=== PATIENT | female | born 1945 | race Caucasian/White ===

== ENCOUNTER → 2020-09-09 | Day surgery (SDC) | payer MEDICARE, BC ==
[2020-09-07 09:07] VITALS: BMI 21.3
[~2020-09-09] MED LIST: LACTATED RINGERS 1,000 ML IV ONE; PROPOFOL 10 MG/ML 20 ML VIAL IV ONE
[2020-09-09 09:10] VITALS: TEMP 97.8
--- NOTE | 2020-09-09 09:47 | P.PCN ---
Date of Procedure: 09/09/20 Procedure(s) Performed: BRIEF HISTORY: Patient is a 74-year-old pleasant white female scheduled for an elective colonoscopy as a part of chronic diarrhea for the last several months duration. She has bowel movements daily between 7-10 a day which are loose to watery in consistency. No blood or mucus in the stool. Her last colonoscopy was 5 years ago. PROCEDURE PERFORMED: Colonoscopy with random biopsy. PREOPERATIVE DIAGNOSIS: Chronic diarrhea. IV sedation per Anesthesia. PROCEDURE: After informed consent was obtained, the patient, was brought into the endoscopy unit. IV sedation was administered by Anesthesia under continuous monitoring. Digital rectal examination was normal. Initially the Olympus CF-160 flexible video colonoscope was then inserted in the rectum, gradually advanced into the cecum without any difficulty. Careful examination was performed as the scope was gradually being withdrawn. Ileocecal valve and the appendiceal orifice were visualized and appeared normal. Prep was excellent. Mucosa of the cecum, ascending colon, transverse colon, descending colon, sigmoid colon, and rectum appeared normal. Biopsies were done from ascending and descending colon to rule out microscopic/collagenous colitis. Scattered sigmoid diverticulosis seen. Retroflexion was performed in the rectum and no lesions were seen. The patient tolerated the procedure well. IMPRESSION: Normal-appearing colon from rectum to cecum with no evidence of colitis or colorectal neoplasia. Scattered sigmoid diverticulosis RECOMMENDATIONS: Findings of this examination were discussed with the patient as well as her family. She was advised to follow with the biopsy results. Continue with Bentyl 10 mg 4 times daily as needed and follow up in office as needed.
[2020-09-09 09:53] VITALS: RESP 16
[2020-09-09 10:10] VITALS: BP 116/67; PULSE 63
== END ==
LOC: ORWHC2ENDO 08:27
PROVIDERS: ATTEND Internal Medicine Gastroenterology
DX: D72.820 Lymphocytosis (symptomatic) (principal); K57.30 Diverticulosis of large intestine without perforation or abscess without bleeding; Z79.890 Hormone replacement therapy; Z79.1 Long term (current) use of non-steroidal anti-inflammatories (NSAID); E07.9 Disorder of thyroid, unspecified; Z90.710 Acquired absence of both cervix and uterus; Z98.890 Other specified postprocedural states
CPT/HCPCS: 88305; 45380; J2704

== ENCOUNTER → 2021-11-23 | Outpatient (CLI) | payer MEDICARE, BC ==
--- NOTE | 2021-12-17 07:45 | MM ---
Reason for Exam: Screening (asymptomatic). Last mammogram was performed 3 year(s) and 11 month(s) ago. Patient History: Menarche at age 14. First Full-Term at age 21. Left ovary removed at age 61. Right ovary removed at age 61. Hysterectomy at age 61. Postmenopausal. Currently using Estrogen, starting at age 60. Sister had breast cancer at or over age 50. Sister had breast cancer at or over age 50. Sister had breast cancer at or over age 50. Mother had ovarian cancer at or over age 50. Risk Values: Isatu 5 year model risk: 6.5%. NCI Lifetime model risk: 12.8%. Prior Study Comparison: 12/11/2015 Bilateral MG 3D screening mammo w/cad, [place]. 12/26/2017 Bilateral MG 3D screening mammo w/cad, [place]. Tissue Density: The breast tissue is heterogeneously dense. This may lower the sensitivity of mammography. Findings: Analyzed By CAD. There is no suspicious group of microcalcifications or new suspicious mass in either breast. Overall Assessment: Negative, BI-RAD 1 Management: Screening Mammogram of both breasts in 1 year. A clinical breast exam by your physician is recommended on an annual basis and results should be correlated with mammographic findings. [facility] will attempt to contact patient to return for supplemental views and ultrasound if indicated. Electronically signed and approved by: Eldon Beltran DO
== END | disposition home or self-care (01) ==
LOC: RADMAMWWP 09:20
PROVIDERS: ATTEND Family Medicine
DX: Z12.31 Encounter for screening mammogram for malignant neoplasm of breast (principal); Z78.0 Asymptomatic menopausal state; Z80.3 Family history of malignant neoplasm of breast
CPT/HCPCS: 77063; 77067

== ENCOUNTER → 2023-08-25 | Outpatient (CLI) | payer MEDICARE, BC ==
--- NOTE | 2023-08-27 16:23 | BD ---
EXAMINATION TYPE: Axial Bone Density DATE OF EXAM: 08/25/2023 CLINICAL HISTORY: 77 years old Female. ICD-10 CODE: Z78.0 ASYMP MENOPAUSAL STATE Height: 66" Weight: 135lbs FRAX RISK QUESTIONS: Alcohol (3 or more units per day): No Family History (Parent hip fracture): No Glucocorticoids (More than 3mos): No (Ex: prednisone, prednisolone, methylprednisolone, dexamethasone, and hydrocortisone). History of Fracture in Adulthood: No Secondary Osteoporosis: 1. Type 1 Diabetes: No 2. Hyperthyroidism: No 3. Menopause before 45: No 4. Malnutrition: No 5. Chronic liver disease: No Rheumatoid Arthritis: No Current Tobacco Use: No RISK FACTORS HISTORY OF: Hip Fracture (Right/Left): No Spine Fracture: No History of Wrist Fracture: No Surgery to Spine/Hip(right/left)/Wrist (right/left): No MEDICATIONS: Thyroid Medications: Yes Which medication: Levothyroxine How Long: Approx. 10 years Osteoporosis Medications: No EXAM MEASUREMENTS: Bone mineral densitometry was performed using the [employer]. Bone mineral density as measured about the Lumbar spine is: ----- L1-L4(G/cm2): 1.470 T Score Values are as follows: ----- L1: 0.0 ----- L2: 3.3 ----- L3: 4.4 ----- L4: 1.5 ----- L1-L4: 2.4 Z Score Values are as follows: ----- L1: 1.9 ----- L2: 5.3 ----- L3: 6.3 ----- L4: 3.5 ----- L1-L4: 4.3 Baseline @MPH Bone mineral density about the R hip (g/cm2): 0.908 Bone mineral density about the L hip (g/cm2): 1.035 T Score values are as follows: -----R Neck: -0.8 -----L Neck: -0.3 -----R Total: -0.8 -----L Total: 0.2 Z Score values are as follows: -----R Neck: 1.3 -----L Neck: 1.8 -----R Total: 1.2 -----L Total: 2.2 Baseline @MPH FRAX%s: The graph provided illustrates a 9.4% chance for a major osteoporotic fx and a 1.6% chance fo r the hips probability for fx in 10 years time. IMPRESSION: Normal (Values between +1 and -1 indicate normal bone mass). Consider repeating this study in 5 year s or sooner if there is some new clinical indication. NOTE: T-SCORE=SD OF THE YOUNG ADULT MEAN.
== END | disposition home or self-care (01) ==
LOC: RADBDWWP 08:02
PROVIDERS: ATTEND Family Medicine
DX: Z78.0 Asymptomatic menopausal state (principal)
CPT/HCPCS: 77080

== ENCOUNTER → 2023-10-05 | Outpatient (CLI) | payer MEDICARE, BC ==
--- NOTE | 2023-11-24 12:04 | CA ---
Transthoracic Echo Report Name: Katerina Myers Age: 78 Gender: F : 1945 Exam Date: 10/05/2023 14:38 Exam Location: [facility] Ht (in): 66 Wt (lb): 134 Ordering Physician: Attending/Referring Phys: Building Estimator Tawny Martinez RDCS Procedure CPT: Indications: Cardiac Hx: Technical Quality: Fair Contrast 1: Total Dose (mL): Contrast 2: Total Dose (mL): MEASUREMENTS (Male / Female) Normal Values 2D ECHO LV Diastolic Diameter PLAX 3.6 cm 4.2 - 5.9 / 3.9 - 5.3 cm LV Systolic Diameter PLAX 2.7 cm IVS Diastolic Thickness 0.8 cm 0.6 - 1.0 / 0.6 - 0.9 cm LVPW Diastolic Thickness 1.1 cm 0.6 - 1.0 / 0.6 - 0.9 cm LV Relative Wall Thickness 0.5 RV Internal Dim ED PLAX 3.3 cm LA Volume 72.8 cm??? 18 - 58 / 22 - 52 cm??? LA Volume Index 43.3 cm???/m??? 16 - 28 cm???/m??? M-MODE Aortic Root Diameter MM 2.6 cm LA Systolic Diameter MM 3.2 cm LA Ao Ratio MM 1.2 AV Cusp Separation MM 1.9 cm DOPPLER AV Peak Velocity 125.6 cm/s AV Peak Gradient 6.3 mmHg AV Mean Velocity 74.9 cm/s AV Mean Gradient 2.7 mmHg AV Velocity Time Integral 25.1 cm LVOT Peak Velocity 99.3 cm/s LVOT Peak Gradient 3.9 mmHg LVOT Velocity Time Integral 25.1 cm MV Peak Velocity 114.9 cm/s MV Peak Gradient 5.3 mmHg MV Mean Velocity 81.0 cm/s MV Mean Gradient 2.7 mmHg MV Velocity Time Integral 25.3 cm MV Area PHT 4.5 cm??? Mitral E Point Velocity 76.6 cm/s Mitral A Point Velocity 99.0 cm/s Mitral E to A Ratio 0.8 MV Deceleration Time 168.5 ms MV E' Velocity 7.6 cm/s Mitral E to MV E' Ratio 10.1 TR Peak Velocity 256.9 cm/s TR Peak Gradient 26.4 mmHg Right Ventricular Systolic Press 30.1 mmHg FINDINGS Left Ventricle Normal Left ventricular size, wall thickness, systolic function with no obvious regional wall motion abnormalities. Left ventricular ejection fraction is estimated at 55 - 60 %. Right Ventricle Normal right ventricular function. Right ventricular systolic pressure within normal limits. Right Atrium Normal right atrial size. Left Atrium Moderately increased left atrial volume. Mitral Valve Structurally normal mitral valve. Mild mitral annular calcification. Mild mitral regurgitation. Aortic Valve Trileaflet aortic valve. No aortic valve stenosis or regurgitation. Tricuspid Valve Structurally normal tricuspid valve. Mild tricuspid regurgitation. Pulmonic Valve Structurally normal pulmonic valve. Pericardium No pericardial effusion. Aorta Normal size aortic root and proximal ascending aorta. CONCLUSIONS 1. Normal left ventricular size and systolic function 2. Mild mitral and tricuspid regurgitation Previewed by: Dr. Racquel Castro MD (Electronically Signed) Final Date: 06 October 2023 10:25
== END | disposition home or self-care (01) ==
LOC: RADECHMAIN 13:28
PROVIDERS: ATTEND Family Medicine
CPT/HCPCS: 93306

== ENCOUNTER → 2023-10-12 | Outpatient (CLI) | payer MEDICARE, BC ==
--- NOTE | 2023-10-12 11:07 | US ---
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 Indirect Doppler criteria was utilized. FINDINGS: EXAM MEASUREMENTS: RIGHT: Peak Systolic Velocity (PSV) cm/sec ----- Right CCA: 82.3 ----- Right ICA: 110.6 ----- Right ECA: 101.3 ICA/CCA ratio: 1.3 RIGHT: End Diastole cm/sec ----- Right CCA: 14.0 ----- Right ICA: 31.2 ----- Right ECA: 8.7 LEFT: Peak Systolic Velocity (PSV) cm/sec ----- Left CCA: 92.7 ----- Left ICA: 102.6 ----- Left ECA: 94.9 ICA/CCA ratio: 1.1 LEFT: End Diastole cm/sec ----- Left CCA: 15.0 ----- Left ICA: 39.9 ----- Left ECA: 8.0 VERTEBRALS (direction of flow): Right Vertebral: Antegrade Left Vertebral: Antegrade Rhythm: Normal DOCUMENT CLERK NOTES: no significantly elevated velocity, no plaque seen IMPRESSION: No significant hemodynamic stenosis. Criteria for Assigning % of Stenosis / Diameter reduction (Estimation based on the indirect measurements of the internal carotid artery velocities (ICA PSV). 1. Normal (no stenosis)=ICA PSV < 125 cm/s: ratio < 2.0: ICA EDV<40 cm/s. 2. Less than 50% stenosis=ICA PSV < 125 cm/s: ratio < 2.0: ICA EDV<40 cm/s. 3. 50 to 69% stenosis=ICA PSV of 125 to 230 cm/s: ration 2.0 ? 4.0: ICA EDV 40-100 cm/s. 4. Greater than 70% stenosis to near occlusion= ICA PSV > 230 cm/s: ratio > 4.0: ICA EDV > 100 cm/s. 5. Near occlusion= ICA PSV velocities may be low or undetectable: variable ratio and ICA EDV. 6. Total occlusion=unable to detect flow.
== END | disposition home or self-care (01) ==
LOC: RADUSWWP 10:11
PROVIDERS: ATTEND Family Medicine
DX: G43.B0 Ophthalmoplegic migraine, not intractable (principal)
CPT/HCPCS: 93880

== ENCOUNTER → 2023-11-27 | Outpatient (CLI) | payer MEDICARE, BC ==
--- NOTE | 2023-11-27 13:57 | MM ---
Reason for Exam: Screening (asymptomatic). Last screening mammogram was performed 12 month(s) ago. Patient History: Menarche at age 14. First Full-Term at age 21. Left ovary removed at age 61. Right ovary removed at age 61. Hysterectomy at age 61. Postmenopausal. Currently using Estrogen, starting at age 60. Sister had breast cancer at or over age 50. Sister had breast cancer at or over age 50. Sister had breast cancer at or over age 50. Mother had ovarian cancer at or over age 50. Risk Values: Isatu 5 year model risk: 6.3%. NCI Lifetime model risk: 11.1%. Prior Study Comparison: 12/26/2017 Bilateral MG 3D screening mammo w/cad, [place]. 11/23/2021 Bilateral MG 3D screening mammo w/cad, [facility]. 11/24/2022 Bilateral MG 3D screening mammo w/cad, [facility]. Tissue Density: The breasts are extremely dense, which lowers the sensitivity of mammography. Findings: Analyzed By CAD. Right breast: There is no suspicious group of microcalcifications or new suspicious mass. Left breast: There is no suspicious group of microcalcifications or new suspicious mass. Overall Assessment: Negative, BI-RAD 1 Management: Screening Mammogram of both breasts in [address] [facility] will attempt to contact patient to return for supplemental views and ultrasound if indicated. Patient should continue monthly self-breast exams. A clinical breast exam by your physician is recommended on an annual basis. This exam should not preclude additional follow-up of suspicious palpable abnormalities. Note on Isatu scores and lifetime risk: 1. A Isatu score greater than 3% is considered moderate risk. If this is the case, consider specialist referral to assess eligibility for a risk reducing agent. 2. If overall lifetime risk for the development of breast cancer is 20% or higher, the patient may qualify for future screening with alternating mammogram and breast MRI. [facility], , 11/27/2023 1:53 PM. Electronically signed and approved by: Eldon Beltran DO
== END | disposition home or self-care (01) ==
LOC: RADMAMWWP 12:27
PROVIDERS: ATTEND Family Medicine
CPT/HCPCS: 77063; 77067